=== PATIENT | female | born 1985 | race Native Hawaiian/Other Pacific Islander ===

== ENCOUNTER 2021-09-25 15:52 | Emergency (ER) | payer OTHER ==
[~2021-09-25] VITALS: Ht 165.1 cm; Wt 79.4 kg
[2021-09-25 16:02] VITALS: TEMP 97.5
[2021-09-25] MEDS ORDERED: CLINDAMYCIN HY300 MG PO (16:43)
[2021-09-25 17:41] VITALS: BP 126/74
== END 2021-09-25 17:42 | disposition home or self-care (01) ==
LOC: ED 15:52
DX: L03.116 Cellulitis of left lower limb (principal)
CPT/HCPCS: 99282; J1885

== ENCOUNTER 2022-01-19 13:35 | Emergency (ER) | payer OTHER ==
[~2022-01-19] VITALS: Ht 165.1 cm; Wt 79.4 kg
[~2022-01-19 13:35] MED LIST: CLINDAMYCIN HY300 MG PO
[2022-01-19 14:50] VITALS: BP 109/78; TEMP 98.3
== END 2022-01-19 14:50 | disposition home or self-care (01) ==
LOC: ED 13:35
DX: S61.411A Laceration without foreign body of right hand, initial encounter (principal); W22.8XXA Striking against or struck by other objects, initial encounter; Y92.89 Other specified places as the place of occurrence of the external cause
CPT/HCPCS: 90471; 90715; 96372; 99283; J1885

== ENCOUNTER 2022-02-11 08:12 | Emergency (ER) | payer OTHER ==
[~2022-02-11] VITALS: Ht 162.6 cm; Wt 80.7 kg
[2022-02-11 08:45] LABS: PLATELET COUNT 210 K/uL (152-353)
[2022-02-11 08:52] LABS: POTASSIUM 3.7 mmol/L (3.6-5.2)
[2022-02-11 10:00] VITALS: BP 131/79; TEMP 98
== END 2022-02-11 10:00 | disposition home or self-care (01) ==
LOC: ED 08:12
PROVIDERS: Emergency Medicine
DX: J10.1 Influenza due to other identified influenza virus with other respiratory manifestations (principal); J45.909 Unspecified asthma, uncomplicated; F17.210 Nicotine dependence, cigarettes, uncomplicated; Z20.822 Contact with and (suspected) exposure to COVID-19
CPT/HCPCS: 36415; 80048; 85027; 87502; 87635; 94664; 96374; 99284; J2930; U0003

== ENCOUNTER 2022-03-04 07:50 | Emergency (ER) | payer OTHER ==
[~2022-03-04] VITALS: Ht 162.6 cm; Wt 80.7 kg
[2022-03-04 07:59] VITALS: BP 106/72; TEMP 98
== END 2022-03-04 09:01 | disposition home or self-care (01) ==
LOC: ED 07:50
DX: S93.491A Sprain of other ligament of right ankle, initial encounter (principal); W10.8XXA Fall (on) (from) other stairs and steps, initial encounter; Y92.096 Garden or yard of other non-institutional residence as the place of occurrence of the external cause
CPT/HCPCS: 99282

== ENCOUNTER 2022-05-19 08:14 | Outpatient (CLI) | payer OTHER | END 2022-05-19 19:48 | disposition home or self-care (01) | LOC: RAD 08:14 | PROVIDERS: ATTEND Internal Medicine Rheumatology | DX: M06.4 Inflammatory polyarthropathy (principal); M25.551 Pain in right hip; M25.552 Pain in left hip; M54.51 Vertebrogenic low back pain ==